=== PATIENT | male | born 1965 | race Caucasian/White ===

== ENCOUNTER 2017-01-25 13:10 | Emergency (ER) | payer MEDICARE, OTHER ==
--- NOTE | 2017-01-25 13:53 | EDM.PDOC ---
ED HPI GENERAL MEDICAL PROBLEM - General Chief Complaint: General Stated Complaint: anemia Time Seen by Provider: 01/25/17 13:44 Source of Information: Reports: Patient, Other (CLINIC NOTE) History Limitations: Reports: No Limitations - History of Present Illness INITIAL COMMENTS - FREE TEXT/NARRATIVE: PT SENT BY [facility] FOR TACHYCARDIA, SOB, AND ANEMIA. SHE SPOKE TO HOSPITALIST AT [facility] AND WAS ADVISED TO HAVE CT CHEST TO R/O PE AND CARDIAC ECHO. SHE SPOKE TO CHARGE NURSE HERE AT [facility] WHO INFORMED HER WE DO NOT HAVE CT OR US AVAILABLE BUT SENT PT ANYWAY. LAB WORK AND CHEST XRAY TAKEN AT CLINIC REVIEWED. PT PRESENTED IN NO DISTRESS, SAT 99% ON R/A, AND DENYING CP. Onset: Gradual Associated Symptoms: Reports: Shortness of Breath, Weakness - Related Data Home Meds: Home Meds Albuterol [Ventolin HFA] 1 gm INH Q2H 01/25/17 [History] Cetirizine [ZyrTEC] 10 mg PO DAILY PRN 01/25/17 [History] Fluticasone Furoate [Flonase Sensimist] 1 spray NS DAILY 01/25/17 [History] Sucroferric Oxyhydroxide [Velphoro] 500 mg PO QIDACANDBED 01/25/17 [History] Triamcinolone Acetonide 1 gm TP BID 01/25/17 [History] Zolpidem Tartrate [Zolpidem Tartrate] 5 mg PO BEDTIME PRN 01/25/17 [History] predniSONE [predniSONE] 10 mg PO DAILY 01/25/17 [History] ED ROS GENERAL - Review of Systems Review Of Systems: ROS reveals no pertinent complaints other than HPI. Constitutional: Reports: Weakness HEENT: Reports: No Symptoms Respiratory: Reports: Shortness of Breath Cardiovascular: Reports: Other (FAST HR) GI/Abdominal: Reports: No Symptoms : Reports: No Symptoms Musculoskeletal: Reports: No Symptoms Skin: Reports: No Symptoms Neurological: Reports: No Symptoms Psychiatric: Reports: No Symptoms Hematologic/Lymphatic: Reports: Anemia Immunologic: Reports: No Symptoms ED EXAM, GENERAL - Physical Exam Exam: See Below Exam Limited By: No Limitations General Appearance: Alert, WD/WN, No Apparent Distress Throat/Mouth: Normal Inspection, Normal Oropharynx, No Airway Compromise Neck: Normal Inspection Respiratory/Chest: No Respiratory Distress, Lungs Clear, Normal Breath Sounds, Chest Non-Tender Cardiovascular: Tachycardia (AT 101) GI/Abdominal: Normal Bowel Sounds, Soft Extremities: Normal Inspection, No Pedal Edema Neurological: Alert, Oriented, Normal Cognition Psychiatric: Normal Affect, Normal Mood Skin Exam: Warm, Dry, Intact, Normal Color, No Rash Lymphatic: No Adenopathy Course - Re-Assessments/Exams Free Text/Narrative Re-Assessment/Exam: 01/25/17 13:55 PT AFEBRILE, NONTOXIC APPEARING, VSS, DENIES CP. DISCUSSED IN DEPTH THE OPTIONS PT HAD. DUE TO BEING UNABLE TO PERFORM CT CHEST OR CARDIAC US, I ADVISED PT THAT WE WOULD TRANSPORT HIM VIA AMBULANCE TO [facility] FOR RECOMMENDED TESTS , BUT HE REFUSED. PREFERRED TO SIGN OUT AMA AND HAVE FRIEND DRIVE HIM THERE. PT WAS GIVEN DOCUMENTATION FROM CLINIC TO PRESENT TO [facility]. Departure - Departure Time of Disposition: 14:00 Disposition: Against Medical Advice 07 Condition: Good Clinical Impression: Tachycardia, SOB (shortness of breath), Weakness - Discharge Information Additional Instructions: FOLLOW UP AT [facility] ER IMMEDIATELY UPON LEAVING [facility] - Assessment/Plan Assessment:: SOB/TACHYCARDIA Plan: PT LEFT AMA AND WILL F/U AT [facility] ER
== END 2017-01-25 13:45 | disposition left against medical advice (07) ==
LOC: KA.ED 13:10
DX: R06.02 Shortness of breath (principal); R00.0 Tachycardia, unspecified; R53.1 Weakness; Z79.899 Other long term (current) drug therapy
CPT/HCPCS: 99281; 99284